=== PATIENT | female | born 1985 | race Caucasian/White ===

== ENCOUNTER 2016-07-05 16:42 | Emergency (ER) | payer OTHER ==
[2016-07-05 16:57] VITALS: BP 118/76; PULSE 103; RESP 18; TEMP 99.9; O2SAT 97
--- NOTE | 2016-07-05 17:40 | UCPHY ---
[id number] 17:05 HPI/ROS: CHIEF COMPLAINT: Vomiting, cough HISTORY OF PRESENT ILLNESS: 30-year-old female presents to urgent care by private vehicle complaining of multiple episodes of vomiting today. Patient is 12 weeks and has been taking Diclegis and Zofran as needed for nausea. Patient thinks that the vomiting is not related to the . She has been urinating normally. No diarrhea. No abdominal pain or cramping. No headache. She was around her [id number] and [id number] who tested positive for influenza. The patient did receive influenza vaccine in the fall. No fevers or chills. She does feel overall the. No urinary symptoms. No chest pain or difficulty breathing. REVIEW OF SYSTEMS: Constitutional: No fever, no chills. Eyes: No double or blurry vision. ENT: No sore throat. Respiratory: Cough as above. no shortness of breath. Cardiac: No chest pain. Gastrointestinal: Vomiting. No abdominal pain or diarrhea. Genitourinary: No dysuria. Musculoskeletal: No neck or back pain. Skin: No rashes. Neurological: No headache. (Piper Mooney) Past Medical/Surgical History: 12 weeks (Piper Mooney) Social History: , works as a teacher at [employer] (Piper Mooney) Physical Exam: General Appearance: Alert, no distress. Temperature 37.7, 97% on room air. Eyes: Pupils equal and round. Extraocular motions are all intact. ENT: Mouth: Mucous membranes moist. Respiratory: No wheezing, rhonchi, or rales, lungs are clear to auscultation. Cardiovascular: Regular rate and rhythm. Gastrointestinal: Abdomen is soft and nontender, no masses, no rebound or guarding, bowel sounds normal. Neurological: Alert and oriented x 3, cranial nerves II through XII grossly intact Skin: Warm and dry, no rashes. Musculoskeletal: Nontender to palpate along the cervical, thoracic or lumbar spine. Neck is supple. Extremities: Full range of motion and no peripheral edema. Psychiatric: Patient is oriented X 3, there is no agitation. (Piper Mooney) Constitutional: Initial Vital Signs Temperature (C) 37.7 C 07/05/16 16:53 Heart Rate 103 H 07/05/16 16:53 Respiratory Rate 18 07/05/16 16:53 Blood Pressure 118/76 07/05/16 16:53 O2 Sat (%) 97 07/05/16 16:53 O2 Delivery Mode Room Air Medical Decision Making ED Course/Re-evaluation: 30-year-old female presents to urgent care with multiple episodes of vomiting. She has been able to keep water down. She declined an IV. She states she is urinating normally. I did explain the possible Tamiflu and testing for influenza. The patient declined. I did explain that taking Tamiflu during she can have risk and the patient declined testing for influenza or taking Tamiflu. I did encourage her to rest and not work if she still continued to feel nauseous. She has her own prescriptions for nausea at home which she will continue. She was told to return if she developed recurring vomiting, if she develops fever, shortness of breath, or if she felt worse in any way. (Piper Mooney) Urgent Care PA supervision Physician documentation: The patient was evaluated and managed by the physician histology assistant. My co- signature indicates that I have reviewed this chart and I agree with the findings and plan of care as documented. I am the secondary supervising physician. (Hong Daugherty) Differential Diagnosis: Including but not limited to viral upper respiratory infection, gastritis, , bronchitis, pneumonia, influenza (Piper Mooney) Departure - Departure Disposition: Home, Routine, Self-Care Clinical Impression: Vomiting, Upper respiratory infection Condition: Good Instructions: Acute Nausea and Vomiting (ED), Upper Respiratory Infection (ED) , (ED) Additional Instructions: Clear liquids and then slowly advance diet as tolerated. Continue Zofran ODT and Diclegis for nausea as directed. Return if you developed decreased urine output, if you continue to vomit, or if you feel worse in any way. Referrals: Jody Navarrete [Primary Care Provider] - As per Instructions - PQRS PQRS Measurement: Not applicable (Piper Mooney)
== END 2016-07-05 17:51 | disposition home or self-care (01) ==
LOC: MERGE 16:42 → CED 16:42
DX: R11.10 Vomiting, unspecified (principal); J06.9 Acute upper respiratory infection, unspecified; Z33.1 Pregnant state, incidental; Z3A.12 12 weeks gestation of pregnancy
CPT/HCPCS: 99214-PO; G0463-PO